=== PATIENT | male | born 1950 | race Caucasian/White ===

== ENCOUNTER → 2017-09-03 | Outpatient (CLI) | payer MEDICARE ==
[~2017-09-03] MED LIST: ASPI81TA82 PO; CODOIL PO; GLUCTAB6 PO; LEVO.075 PO; LORTA5 PO; MAGN400 PO; OMEP20TA PO; PILO5 PO; SAW160TA PO; TAB-TAB PO; TURM500C3 PO; [UNRECOGNIZED DRUG - CODE] PO
[2017-09-03 12:43] LABS: AUTOMATED NEUTROPHIL # 2.5 TH/MM3 (1.8-7.7); EOSINOPHIL # 0.1 TH/MM3 (0-0.4); EOSINOPHIL % 2.6 % (0.0-4.0); HEMATOCRIT 44.6 % (39.0-51.0); HEMOGLOBIN 15.2 GM/DL (13.0-17.0); LYMPH % 28.5 % (9.0-44.0); LYMPHOCYTE # 1.3 TH/MM3 (1.0-4.8); MEAN CELL VOLUME 90.3 FL (80.0-100.0); MEAN CORPUSCULAR HEMOGLOBIN 30.8 PG (27.0-34.0); MEAN CORPUSCULAR HGB CONC 34.1 % (32.0-36.0); MEAN PLATELET VOLUME 7.3 FL (7.0-11.0); MONO % 13.1 % (0.0-8.0); MONOCYTE # 0.6 TH/MM3 (0-0.9); NEUT % 54.8 % (16.0-70.0); PLATELET COUNT 224 TH/MM3 (150-450); RED BLOOD COUNT 4.95 MIL/MM3 (4.50-5.90); RED CELL DISTRIBUTION WIDTH 13.4 % (11.6-17.2); WHITE BLOOD COUNT 4.6 TH/MM3 (4.0-11.0)
--- NOTE | 2017-09-04 23:01 | EKG ---
Date Performed: 09/03/2017 Time Performed: 12:57:04 PTAGE: 67 years EKG: Sinus rhythm NORMAL ECG PREVIOUS TRACING : 04/25/2015 10.37 Since the previous tracing, no significant change noted DOCTOR: Evie Rubio Interpretating Date/Time 09/04/2017 23:01:35
== END ==
LOC: CLAB 12:11
PROVIDERS: ATTEND Orthopaedic Surgery Orthopaedic Surgery of the Spine
DX: Z01.810 Encounter for preprocedural cardiovascular examination (principal); M25.50 Pain in unspecified joint; M16.12 Unilateral primary osteoarthritis, left hip
CPT/HCPCS: 36415; 85025; 93005

== ENCOUNTER → 2017-10-25 | Outpatient (CLI) | DX: Z01.812 Encounter for preprocedural laboratory examination (principal); Z01.811 Encounter for preprocedural respiratory examination; Z01.818 Encounter for other preprocedural examination; M16.12 Unilateral primary osteoarthritis, left hip; Z96.60 Presence of unspecified orthopedic joint implant; M79.609 Pain in unspecified limb; Z79.01 Long term (current) use of anticoagulants; Z13.9 Encounter for screening, unspecified ==

== ENCOUNTER → 2017-11-05 | Day surgery (SDC) | payer MEDICARE ==
[~2017-11-05] VITALS: Ht 180.3 cm; Wt 93.1 kg
[~2017-11-05] MED LIST changes: +ACETAMINOPHEN 1000 MG/100 ML 0 ML IV ONE; +ACETAMINOPHEN 1000 MG/100 ML 100 ML IV ONE; +ACETAMINOPHEN/HYDROcodone 325 MG/10 MG TAB PO PRN; +ACETAMINOPHEN/HYDROcodone 325 MG/7.5 MG TAB PO PRN; +ASPI81TA23 PO; -ASPI81TA82 PO; +ASPIRIN EC 81 MG TABEC PO SCH; +BUPIVACAINE-EPI PF 0.25% INJ 20 ML, BUPIVACAINE LIPOSO PF 1.3% INJ 20 ML in SODIUM CHLO... P-ARTICULR SCH; +CELECOXIB 200 MG CAP PO ONE; +CHLORHEXIDINE GLUCONATE 2 % 1 PACK (2 CLOTHS) TOPICAL PRN; +CHLORHEXIDINE GLUCONATE 4% SOLN 120 ML BTL TOPICAL SCH; +CODCAP4 PO; -CODOIL PO; +DEXAMETHASONE SOD PHOS 20 MG/5 ML VIAL IV PUSH ONE; +DO NOT ADM ANY ANTICOAGULANT DRUGS PRN; +DOCUSATE SODIUM 100 MG CAP PO SCH; +FAMOTIDINE 20 MG/2 ML VIAL IV PUSH ONE; +FAMOTIDINE 20 MG/2 ML VIAL ONE; +GABAPENTIN 300 MG CAP PO ONE; +GENTAMICIN SULFATE 80 MG/2 ML VIAL ONE; +GLUC500T4 PO; -GLUCTAB6 PO; +GLYCOPYRROLATE 1 MG/5 ML SYRINGE IV PUSH ONE; +KETOROLAC TROMETHAMINE 30 MG/ML (IVP) VIAL IV PUSH SCH; +LACTATED RINGER'S 1000 ML INJ 1,000 ML IV ONE; +LACTATED RINGER'S 1000 ML INJ 1,000 ML IV SCH; +LACTATED RINGER'S 1000 ML IV PRN; +LIDOCAINE HCL 1% PF 5 ML SYRINGE OTHER ONE; -LORTA5 PO; -MAGN400 PO; +METOPROLOL TARTRATE 25 MG TAB PO PRN; +MIDAZOLAM HCL 2 MG/2 ML VIAL ONE; +MORPHINE SULFATE 4 MG/ML INJ IV PUSH PRN; +MULT-65 PO; +NALOXONE HCL 0.4 MG/ML AMP IV PUSH PRN; +NEOSTIGMINE 5 MG/5 ML SYRINGE IV PUSH ONE; -OMEP20TA PO; +ONDANSETRON HCL 4 MG/2 ML VIAL IV PUSH ONE; +ONDANSETRON ODT 4 MG TAB ONE; +ONDANSETRON ODT 4 MG TAB SL PRN; +PHENYLEPH/NS 1000 MCG/10 ML SYR IV ONE; +POVIDONE IODINE 5% (ANTISEPSIS KIT) 4 APPLICATIONS EACH NARE PRN; +PROPOFOL 200 MG/20 ML AMP IV ONE; +Post-op Orders (for Pharmacy) XX ONE; +ROCURONIUM INJ 50 MG/5 ML SYRINGE IV PUSH ONE; -SAW160TA PO; +SODIUM CHLORID 0.9% 500 ML IV PRN; -TAB-TAB PO; +TRANEXAMIC ACID INJ 1,000 MG in SODIUM CHLORIDE 0.9% INJ 100 ML IV ONE; +TRANEXAMIC ACID INJ 1,400 MG in SODIUM CHLORIDE 0.9% INJ 100 ML IV SCH; -TURM500C3 PO; +VANCOMYCIN 1000 MG/NS 250 ML (for <70 kg) IV SCH; +ZANT150T2 PO; -[UNRECOGNIZED DRUG - CODE] PO; +ceFAZolin 2 GM PREMIX 50 ML IV SCH; +ePHEDrine/NS 25 MG/5 ML SYRINGE IV ONE
--- NOTE | 2017-11-05 08:55 | PD.OP ---
cc: Lawrence Armando MD Operative Report Date of Surgery: November 05, 2017 Preoperative Diagnosis: Severe left hip osteoarthritis Postoperative Diagnosis: Procedure: Left total hip arthroplasty by anterior approach Anesthesia: General Surgeon: Lawrence Armando Ticket Sorter(s): IGNACIA Figueroa PA-C The surgical procedure was assisted by my physician food and beverage assistant. My P.A. presence was necessary throughout this case for the manipulation and positioning of the surgical extremity. My P.A. was assisting me throughout the duration of this procedure. The skill set of a physician food and beverage assistant was medically necessary to complete this procedure. During the surgical case the surgical technologist was working at the back table and the physician food and beverage assistant was directly assisting me. Operation and Findings: PLAN OF ACTIVITY Weight bear as tolerated. IMPLANTS USED US [employer] Corail size 12 collared stem with a size [54] [place] Gription cup, [54/ 36] Altrx poly liner, and a [36+5] ceramic Biolox ceramic head. DETAILS OF PROCEDURE: This patient has a long history of hip pain. Patient was found to have severe osteoarthritis. The patient had radiographic evidence of joint space narrowing with [id number] arthritis and osteophytes around the acetabulum as well as the femoral head. There was also some cystic changes. The patient failed conservative treatment with pain medications, anti-inflammatories, physical therapy, assistive devices including a cane, as well as therapeutic injection of the hip. Patient's hip arthritis was limiting his ability to ambulate and perform activities of daily living. The patient wished to proceed with surgery and informed consent was obtained. Operative site was marked. I discussed both posterior approach and anterior approach with the patient and decision was made for anterior approach. Patient was brought to OR and placed on OR table. IV sedation and general anesthesia was administered by anesthesiologist. Patient positioned on a Parris table and was given IV antibiotics. Time-out procedure was performed. The hip and thigh were prepped with alcohol followed by Hibiclens. The thigh was draped in the usual sterile fashion. Clean Air Suite was used for this procedure. The procedure began with a 5-inch incision over the anterolateral thigh. Subcutaneous tissue was dissected with Bovie. The fascia over the tensa fasciae latae was incised. Care was taken to avoid injury to the lateral femoral cutaneous nerve. The tensor muscle was retracted laterally. Sartorius was retracted medially. Retractors were now placed. The reflected head of the rectus is now elevated. A capsulotomy was performed over the anterior head capsule. Sutures were placed to help retract the capsule. At this point the femoral head and neck were identified. With soft tissue protected, oscillating saw was used to make a cut through the femoral neck, the femoral head was now removed. At this point attention was turned to preparation of the acetabulum. The labrum was excised. The acetabulum was sequentially reamed up to size [54]. A [place] cup was now placed. Fluoroscopy was used to aid in identification of appropriate version. Cup was fully impacted and found to have excellent fit. Hole eliminator was now placed. The liner was now impacted into the cup. At this point the hip was externally rotated. A hook was placed around the proximal femur. The capsule was released off the lateral and medial femur. The hip was now extended and adducted. Retractors were placed around the proximal femur to allow for exposure. A box osteotome was used to remove the lateral cortex of the femoral neck. A broach was used to help lateralize the prosthesis. Canal finder was used to create a path down the canal. Next, the canal was sequentially broached up to size [12]. This was found to be an excellent fit. Calcar planer was placed. A standard head was placed, and the hip was reduced. The hip was found to have excellent stability with good range of motion. The leg lengths were measured under fluoroscopy and found to be equal compared to preoperatively. Trial broach was removed. The Corail stem was opened. Stem was fully impacted into the proximal femur in appropriate version. The femoral head was placed. The hip was again reduced. Fluoroscopy confirmed excellent alignment of prosthesis. The wound was thoroughly irrigated and capsule was closed with #1 Vicryl. The fascia over the tensor fasciae muscle was closed with #1 Vicryl, subcutaneous tissue was closed with 3-0 Vicryl and the skin was closed with nichol and Dermabond skin closure. The capsule layers, muscle, and subcutaneous tissue were injected with a mixture of saline and bupivicaine. Dressings were applied. The patient was transferred to Recovery Room in stable condition. Lawrence Armando MD November 05, 2017 08:55
--- NOTE | 2017-11-05 09:57 | RADRPT ---
EXAM DATE: 11/05/2017 9:48 AM EDT AGE/SEX: 67 years / Male INDICATIONS: Post left total hip replacement. CLINICAL DATA: This is the patient's initial encounter. Patient reports that signs and symptoms have been present for 1 day and indicates a pain score of 3/10. MEDICAL/SURGICAL HISTORY: None. None. COMPARISON: No prior [facility] exams available for comparison. FINDINGS: AP view of the pelvis with lateral view of the left hip demonstrates hardware related to total hip ar throplasty. Acetabular component is noncemented without screws. The femoral component is noncemented and contains a medial collar. No fracture or dislocation is identified. Pelvic bones demonstrate no a cute finding. There is soft tissue air, as expected. No concerning radiopaque foreign body is seen. CONCLUSION: Expected findings following recent left total hip arthroplasty. No acute abnormality is identified. Electronically signed by: Jason Diaz MD 11/05/2017 9:56 AM EDT
--- NOTE | 2017-11-05 11:25 | HHI.FF ---
Face to Face Verification Diagnosis: (1) S/P total hip arthroplasty Physical Therapy Gait training Hip: Total hip, Protocol: Left Left LE Weight Bearing: WB as tolerated Nursing Dressing Changes: Do not change dressing (x 6 days), Daily dressing change ( beginning POD 7 with primapore. leave surgical mesh in place on incision. ) I have seen patient Bull Renteria on 11/05/17. My clinical findings support the need for the requested home health care services because: Ltd mobility - disease progression I certify that my clinical findings support that this patient is homebound because: Post-op weakness Flako Delcid/Parliamentary Counsel JELENA November 05, 2017 11:25
--- NOTE | 2017-11-05 11:28 | HHI.DS ---
Discharge Summary Admission Date November 05, 2017 at 05:09 Discharge Date: November 05, 2017 Admitting Diagnosis Left Hip OA Diagnosis: (1) S/P total hip arthroplasty Diagnosis: Principal ICD Codes: Z96.649 - Presence of unspecified artificial hip joint Procedures Left Anterior ISREAL Hospital Course Patient admitted from outpatient basis for elective left total hip arthroplasty. Patient had failed conservative treatments of arthritis which included activity modification, NSAIDs, intra-articular steroid injections, and therapy. Decision was made to move forward with elective left total hip arthroplasty. Patient tolerated the procedure well. He was ambulating with minimal assistance and minimal pain immediately post op in PACU. His pain is controlled, hemodynamically stable, and ambulating safely. He is fit for discharge home today with [facility]. He will remain WBAT. He will maintain his left hip dressing x 6 days and begin daily dressing changes with primapore on POD 7. He will follow up with Dr Villaseñor or his PA in 2 weeks. Pt Condition on Discharge: Good Discharge Disposition: Discharge Home Discharge Instructions Diet Instructions: As Tolerated, No Restrictions Activities You Can Perform: Full Weight Bearing Flako Delcid PA/Power Plant Operator Apprentice PA November 05, 2017 11:28
[2017-11-05 13:37] VITALS: BP 119/77; PULSE 76; RESP 20; TEMP 97; O2SAT 98
--- NOTE | 2017-11-05 15:17 | RADRPT ---
EXAM DATE: 11/05/2017 3:00 PM EDT AGE/SEX: 67 years / Male INDICATIONS: Left total hip arthroplasty. CLINICAL DATA: This is the patient's initial encounter. Patient reports that signs and symptoms have been present for 1 day and indicates a pain score of Nonresponsive. MEDICAL/SURGICAL HISTORY: . Unobtainable. . Unobtainable. COMPARISON: No prior [place] exams available for comparison. FINDINGS: 2 spot fluoroscopic images obtained in the operating room during a procedure demonstrate the left hip joint with hardware at the acetabulum and proximal femur related to total hip arthroplasty. No unexp ected finding is identified. CONCLUSION: Spot intraoperative images document left total hip arthroplasty hardware in place. Electronically signed by: Jason Diaz MD 11/05/2017 3:16 PM EDT
== END | disposition home or self-care (01) ==
LOC: HSDI 05:09 → UNDOADMIN 05:09 → EDSTATUS 07:00 → HSDC 13:30
PROVIDERS: ATTEND Orthopaedic Surgery Orthopaedic Trauma
DX: M16.12 Unilateral primary osteoarthritis, left hip (principal)
CPT/HCPCS: 01214; 27130; 73501; 73502; 76000; 86850; 86900; 86901; C1776; C9290; J0131; J0690; J1100; J1580; J1885; J2370; J2710; J3010; J3370; J7120; J2250